=== PATIENT | female | born 1955 | race African-American/Black ===

== ENCOUNTER 2017-09-24 14:44 | Emergency (ER) | payer MEDICAID, OTHER ==
[~2017-09-24] VITALS: Ht 165.1 cm; Wt 67.1 kg
[~2017-09-24 14:44] MED LIST: ALBUTEROL SULF8.5 GM INH; AMOXICILLIN500 MG ORAL; AZITHROMYCIN250 MG ORAL; IBUPROFEN600 MG ORAL; NKM; NORCO 5-325 TA1 EACH ORAL; PENICILLIN V P500 MG ORAL; PENICILLIN V P500 MG PO; ZITHROMAX250 MG ORAL
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
[2017-09-24] MEDS ORDERED: NORCO 5-325 TA1 EACH ORAL (15:04)
[2017-09-24] MEDS ORDERED: IBUPROFEN600 MG ORAL (15:04)
[2017-09-24] MEDS ORDERED: PENICILLIN V P500 MG PO (15:04)
[2017-09-24 15:18] VITALS: BP 126/82
[2017-09-24 15:19] VITALS: BP 126/82
== END 2017-09-24 15:15 | disposition home or self-care (01) ==
LOC: EMR 15:01
DX: K03.81 Cracked tooth (principal)
CPT/HCPCS: 99284

== ENCOUNTER 2019-01-23 11:00 | Emergency (ER) | payer SELFPAY ==
[~2019-01-23] VITALS: Ht 167.6 cm; Wt 62.1 kg
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
[2019-01-23 11:10] VITALS: BP 122/72
[2019-01-23] MEDS ORDERED: Clindamycin 150mg cap ORAL ONE (11:30)
--- NOTE | 2019-01-23 11:44 | Diagnostic Imaging Report ---
EXAM: XR Right Shoulder Complete, 2 or More Views CLINICAL HISTORY: PAIN TECHNIQUE: Two or more views of the right shoulder. COMPARISON: No relevant prior studies available. FINDINGS: Bones/joints: No evidence of acute fracture or dislocation. Mild degenerative narrowing at the right acromioclavicular and glenohumeral joints. Soft tissues: 6 mm round density versus calcification overlying the humeral head. IMPRESSION: 1. No evidence of acute fracture or dislocation. 2. Mild degenerative narrowing at the right acromioclavicular and glenohumeral joints. . 3. 6 mm round density versus calcification overlying the humeral head. This may represent a bone island versus a calcification in the adjacent soft tissues or rotator cuff.
[2019-01-23] MEDS ORDERED: SILVADENE20 GM TP (12:14)
[2019-01-23] MEDS ORDERED: TYLENOL EXTRA500 MG ORAL (12:14)
[2019-01-23] MEDS ORDERED: CLINDAMYCIN HC300 MG ORAL (12:14)
[2019-01-23 12:25] VITALS: BP 115/66
--- NOTE | 2019-01-23 12:26 | NUR ---
ER DISCHARGE NOTE: Patient is cleared to be discharged per ERMD, pt is aox4, on room air, with stable vital signs. pt was given dc and prescription instructions, pt was able to verbalize understanding, pt id band removed. pt is able to ambulate with steady gait. pt took all belongings.
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
== END 2019-01-23 12:26 | disposition home or self-care (01) ==
LOC: EMR 11:30
DX: S46.901A Unspecified injury of unspecified muscle, fascia and tendon at shoulder and upper arm level, right arm, initial encounter (principal); T21.03XA Burn of unspecified degree of upper back, initial encounter; T31.0 Burns involving less than 10% of body surface; W01.0XXA Fall on same level from slipping, tripping and stumbling without subsequent striking against object, initial encounter; Y92.9 Unspecified place or not applicable
CPT/HCPCS: 29105; 99283

== ENCOUNTER 2019-07-22 13:26 | Emergency (ER) | payer MEDICAID ==
[~2019-07-22] VITALS: Ht 167.6 cm; Wt 61.2 kg
[~2019-07-22 13:26] MED LIST changes: +CLINDAMYCIN HC300 MG ORAL; +SILVADENE20 GM TP; +TYLENOL EXTRA500 MG ORAL
--- NOTE | 2019-07-22 13:56 | NUR ---
ED Nurse Note: Pt walked into ED w/ c/o flu like symptoms. Pt has sore throat 5/10 pain, 5/10 pain in eye sockets, fatigue, DE DIOS x 1 week. Pt denies nausea and vomiting. Pt is alert and orientedx4, ambulatory. Pt is sitting in bed. Pt denies any recent travel outside [place].
[2019-07-22 13:58] VITALS: BP 126/73
--- NOTE | 2019-07-22 14:33 | Emergency Room Report ---
History of Present Illness General Chief Complaint: Flu Like Symptoms Source: Patient Present Illness HPI 64-year-old female with no significant past medical history here complaining of 1 week of cough and congestion and subjective fever. Denies any recent travel, abdominal pain, nausea vomiting. Reports her symptoms started with sore throat. Denies any phlegm production, denies wheezing at this time. Has not taken any medication for symptom relief. Is sitting comfortably with stable vital signs. Denies chest pain, shortness of breath, palpitation, headache and dizziness at this time sitting comfortably with stable vital signs Allergies: Coded Allergies: No Known Allergies (Unverified , 09/18/14) Patient History Past Medical History: see triage record Past Surgical History: none Pertinent Family History: none Now: No Immunizations: UTD Reviewed Nursing Documentation: PMH: Agreed; PSxH: Agreed Nursing Documentation-PMH Past Medical History: No Stated History Review of Systems All Other Systems: negative except mentioned in HPI Physical Exam Vital Signs Date Time Temp Pulse Resp B/P (MAP) Pulse Ox O2 Delivery O2 Flow Rate FiO2 07/22/19 13:40 98.4 80 18 117/74 (88) 95 Room Air 07/22/19 13:58 97 Sp02 EP Interpretation: reviewed, normal General Appearance: no apparent distress, alert, GCS 15, non-toxic Head: normocephalic, atraumatic Eyes: bilateral eye normal inspection, bilateral eye PERRL ENT: hearing grossly normal, normal pharynx, no angioedema, normal voice Neck: full range of motion, no meningismus, supple/symm/no masses Respiratory: chest non-tender, lungs clear, normal breath sounds, no rhonchi, no respiratory distress, no retraction, no accessory muscle use, no wheezing Cardiovascular #1: regular rate, rhythm, no edema, no murmur Gastrointestinal: soft, no mass Genitourinary: no CVA tenderness Musculoskeletal: back normal, no calf tenderness Neurologic: alert, motor strength/tone normal, oriented x3, sensory intact, responsive, speech normal Psychiatric: judgement/insight normal, memory normal, mood/affect normal, no suicidal/homicidal ideation Skin: no rash Lymphatic: no adenopathy Medical Decision Making PA Attestation All my diagnosis and treatment plans were reviewed ad discussed with my supervising physician Dr. Aceves Diagnostic Impression: Primary Impression: Pneumonitis ER Course 64-year-old female with no significant past medical history here complaining of 1 week of cough and congestion and subjective fever. Denies any recent travel, abdominal pain, nausea vomiting. Reports her symptoms started with sore throat. Denies any phlegm production, denies wheezing at this time. Has not taken any medication for symptom relief. Is sitting comfortably with stable vital signs. Denies chest pain, shortness of breath, palpitation, headache and dizziness at this time sitting comfortably with stable vital signs Ddx considered but are not limited to: bronchitis, PNA, URI viral, bacterial bronchitis, pneumonitis Vital signs: are WNL, pt. is afebrile H&PE are most consistent with: Pneumonitis ORDERS: Chest x-ray, doxycycline, albuterol, prednisone, Phenergan DM, guaifenesin ED INTERVENTIONS: None required at this time. DISCHARGE: At this time pt. is stable for d/c to home. Will provide printed patient care instructions, and any necessary prescriptions. Care plan and follow up instructions have been discussed with the patient prior to discharge. Patient to follow-up primary care provider, take medication as directed, if worsening symptoms return to the emergency room Chest X-Ray Diagnostic Results Chest X-Ray Diagnostic Results : Chest X-Ray Ordered: Yes # of Views/Limited/Complete: 1 View Indication: Shortness of Breath EP Interpretation: Yes JET Xray: Interpretation reviewed, by supervising MD, and agrees with findings. Interpretation: no consolidation, no effusion, no pneumothorax Impression: No acute disease Electronically Signed by: Viji Baird PA-C Last Vital Signs Date Time Temp Pulse Resp B/P (MAP) Pulse Ox O2 Delivery O2 Flow Rate FiO2 07/22/19 13:58 85 20 Room Air 97 07/22/19 13:58 98.4 126/73 97 Disposition: HOME, SELF-CARE Condition: Stable Scripts Ibuprofen* (MOTRIN*) 600 Mg Tablet 600 MG ORAL Q8H PRN for For Pain, #30 TAB 0 Refills Prov: Viji Davis 07/22/19 Albuterol Sulfate (VENTOLIN HFA) 18 Gm Hfa.aer.ad 2 PUFFS INH EVERY 6 HOURS, #18 GM 0 Refills Prov: Viji Davis 07/22/19 Guaifenesin* (GUAIFENESIN*) 100 Mg/5 Ml Liquid 5 ML ORAL Q8H, #120 ML 0 Refills Prov: Viji Davis 07/22/19 Prednisone* (PREDNISONE*) 20 Mg Tablet 40 MG ORAL DAILY for 5 Days, #10 TAB Prov: Viji Davis 07/22/19 D-Methorphan Hb/Prometh Hcl* (PROMETHAZINE-DM SYRUP*) 118 Ml Syrup 5 ML ORAL Q6H PRN for For Cough, #120 ML 0 Refills Prov: Viji Davis 07/22/19 Doxycycline Hyclate (DOXYCYCLINE HYCLATE) 100 Mg Tablet 100 MG PO BID for 10 Days, #20 TAB Prov: Viji Davis 07/22/19 Patient Instructions: Pneumonitis Additional Instructions: Take medication as directed, follow-up with your primary doctor, if worsening symptoms return to the emergency room Viji Davis Jul 22, 2019 14:33
[2019-07-22] MEDS ORDERED: IBUPROFEN600 MG ORAL (14:37)
[2019-07-22] MEDS ORDERED: PROMETHAZINE-D118 ML ORAL (14:37)
[2019-07-22] MEDS ORDERED: PREDNISONE20 MG ORAL (14:37)
[2019-07-22] MEDS ORDERED: GUAIFENESI100 MG/5 M ORAL (14:37)
[2019-07-22] MEDS ORDERED: DOXYCYCLINE HY100 M6 PO (14:37)
[2019-07-22] MEDS ORDERED: VENTOLIN HFA18 GM INH (14:37)
--- NOTE | 2019-07-22 14:39 | Diagnostic Imaging Report ---
Indication: Cough Technique: One view of the chest Comparison: none Findings: Lungs and pleural spaces are clear. The heart size is normal. There are bilateral breast implants, that on the left demonstrating capsular calcification Impression: No acute process
[2019-07-22 14:48] VITALS: BP 120/70
--- NOTE | 2019-07-22 14:48 | NUR ---
ER DISCHARGE NOTE: Patient is cleared to be discharged per ERMD, pt is aox4, on room air, with stable vital signs. pt was given dc and prescription instructions, pt was able to verbalize understanding, pt id band removed. pt is able to ambulate with steady gait. pt took all belongings. Pt given work note.
== END 2019-07-22 14:50 | disposition home or self-care (01) ==
LOC: EMR 14:33
DX: J18.9 Pneumonia, unspecified organism (principal)
CPT/HCPCS: 71045; Z7502; 99283

== ENCOUNTER 2019-08-05 08:11 | Emergency (ER) | payer MEDICAID ==
[~2019-08-05] VITALS: Ht 167.6 cm; Wt 59.0 kg
[~2019-08-05 08:11] MED LIST changes: +DOXYCYCLINE HY100 M6 PO; +GUAIFENESI100 MG/5 M ORAL; +PREDNISONE20 MG ORAL; +PROMETHAZINE-D118 ML ORAL; +VENTOLIN HFA18 GM INH
--- NOTE | 2019-08-05 08:29 | Emergency Room Report ---
History of Present Illness General Chief Complaint: cough Source: Patient Present Illness HPI Patient presents with reports of improving symptoms from previous presentation patient reports that she was diagnosed with pneumonitis And feels that she is doing better with antibiotics she finished her course of antibiotics felt that there was still some small amount of phlegm production in her throat and requesting refill of the antibiotics Denies any vomiting denies any fevers denies any chest pain or shortness of breath denies any rash Allergies: Coded Allergies: No Known Allergies (Unverified , 09/18/14) Patient History Past Medical History: see triage record Reviewed Nursing Documentation: PMH: Agreed; PSxH: Agreed Review of Systems All Other Systems: negative except mentioned in HPI Physical Exam Sp02 EP Interpretation: reviewed, normal - 99% on room air General Appearance: well appearing, no apparent distress Head: normocephalic, atraumatic Eyes: bilateral eye PERRL, bilateral eye EOMI ENT: hearing grossly normal, normal pharynx, TMs + canals normal, uvula midline Neck: full range of motion, supple, no meningismus, no bony tend Respiratory: lungs clear, normal breath sounds, no rhonchi, no respiratory distress, no retraction, no accessory muscle use Cardiovascular #1: normal peripheral pulses, regular rate, rhythm, no edema, no gallop, no JVD, no murmur Gastrointestinal: normal bowel sounds, non tender, soft, no mass, no organomegaly, non-distended, no guarding, no hernia, no pulsatile mass, no rebound Genitourinary: no CVA tenderness Musculoskeletal: normal inspection Neurologic: motor strength/tone normal, hop picker III-XII nml as tested, oriented x3 , sensory intact, responsive Psychiatric: mood/affect normal Skin: no rash Lymphatic: normal inspection, no adenopathy Medical Decision Making Diagnostic Impression: Primary Impression: Upper respiratory infection ER Course Multiple differentials and consideration including but not limited to pneumonia , URI, coronavirus Patient shows improving symptoms x-ray was provided to the patient on last visit was read as negative by radiology I did not feel repeat antibiotics were appropriate for this patient and she is stable for close outpatient follow-up Status: unchanged Disposition: HOME, SELF-CARE Condition: Stable Additional Instructions: Patient is provided with the discharge instructions notified to follow up with primary doctor in the next 2-3 days otherwise return to the er with any worsening symptoms. Please note that this report is being documented using [employer] technology. This can lead to erroneous entry secondary to incorrect interpretation by the dictating instrument. Dwaine Mora DO Aug 05, 2019 08:29
[2019-08-05 08:49] VITALS: BP 124/72
--- NOTE | 2019-08-05 08:51 | NUR ---
ED Nurse Note:pt. came for f/u from 2 weeks ago URI, feeling better
--- NOTE | 2019-08-05 09:08 | NUR ---
ER DISCHARGE NOTE: Patient is cleared to be discharged per ERMD, pt is aox4, on room air, with stable vital signs. pt was given dc instructions, pt was able to verbalize understanding, pt is able to ambulate with steady gait. pt took all belongings.
== END 2019-08-05 09:08 | disposition home or self-care (01) ==
LOC: EMR 08:53
DX: J06.9 Acute upper respiratory infection, unspecified (principal)
CPT/HCPCS: 99281